=== PATIENT | male | born 1995 | race Caucasian/White ===

== ENCOUNTER 2018-02-18 13:10 | Emergency (ER) | payer OTHER ==
[~2018-02-18] VITALS: Ht 170.2 cm; Wt 63.6 kg
[2018-02-18 13:16] VITALS: BP 133/84; PULSE 82; TEMP 98.2
[2018-02-18 14:04] LABS: BASO # 0.1 (0.0-0.2); EOS # 0.8 (0.0-0.7); EOS % 9.8 % (0-4.0); GRAN # 3.9 (1.4-6.5); GRAN % 49.2 % (42.2-75.2); HEMATOCRIT 46.7 % (36.0-47.0); HEMOGLOBIN 16.6 g/dl (12.5-16.1); LYMPH # 2.4 (1.2-3.4); LYMPH % 29.9 % (20.0-51.0); MEAN CELL VOLUME 89 fl (80.0-95.0); MEAN CORPUSCULAR HEMOGLOBIN 32 pg (26.0-32.0); MEAN CORPUSCULAR HGB CONC 36 g/dl (33.0-37.0); MEAN PLATELET VOLUME 10.1 fl (7.4-10.4); MONO # 0.8 (0.1-0.6); MONO % 9.8 % (1.7-9.3); PLATELET COUNT 248 K/mm3 (130-400); RED BLOOD COUNT 5.27 M/mm3 (4.20-5.60); REDCELL DISTRIBUTION WIDTH-CV 12.1 % (11.5-14.5)
[2018-02-18 14:14] LABS: ANION GAP 9 mmol/L (7-16); BLOOD UREA NITROGEN 13 mg/dL (9-20); CALCIUM 9.9 mg/dL (8.4-10.2); CARBON DIOXIDE 28 mmol/L (22-30); CHLORIDE 99 mmol/L (98-107); CREATININE, serum 0.78 mg/dL (0.66-1.25); GLUCOSE 100 mg/dL (74-106); SODIUM 136 mmol/L (137-145)
[2018-02-18 14:25] LABS: TROPONIN-I < 0.012 ng/mL (0.000-0.034)
== END 2018-02-18 15:42 | disposition home or self-care (01) ==
LOC: COL.ER 13:10
PROVIDERS: Physician Assistant
DX: R07.9 Chest pain, unspecified (principal)